=== PATIENT | female | born 1995 | race Two or more races ===

== ENCOUNTER 2019-03-06 15:25 | Emergency (ER) | payer MEDICAID, OTHER ==
[~2019-03-06] VITALS: Ht 162.6 cm; Wt 82.1 kg
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
--- NOTE | 2019-03-06 16:17 | NUR ---
LAB AT BEDSIDE FOR BLOOD DRAW
--- NOTE | 2019-03-06 16:20 | NUR ---
URINE SENT TO STAT LAB
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
[2019-03-06 16:37] LABS: APPEARANCE,URINE Slightly Cloudy (CLEAR); BILIRUBIN,URINE SMALL (NEGATIVE); BLOOD, URINE Trace-lysed Ery/uL (NEGATIVE); COLOR,URINE Dark (YELLOW); KETONES,URINE Trace (NEGATIVE); LEUKOCYTE ESTERASE ,URINE Trace (NEGATIVE); NITRITE, URINE Negative (NEGATIVE); PH,URINE 5.5 (5.0-8.0); PROTEIN,URINE 30 mg/dl (NEGATIVE); UGLUCOSE Negative (NEGATIVE); UROBILINOGEN,URINE 0.2 EU/dL (0.2)
[2019-03-06 16:42] LABS: BASOPHILS % (AUTO) 0.7 % (0.0-2.0); EOSINOPHILS % (AUTO) 0.7 % (0.0-6.0); HEMATOCRIT 32 % (33-45); HEMOGLOBIN 10.5 g/dL (11.5-14.8); LYMPHOCYTES # (AUTO) 2.4 /CMM (0.8-4.8); LYMPHOCYTES % (AUTO) 34.3 % (20.0-44.0); MEAN CORPUSCULAR HGB CONC 33 g/dl (31.0-36.0); MEAN CORPUSCULAR VOLUME 86 fL (82-100); MONOCYTES # (AUTO) 0.4 /CMM (0.1-1.30); MONOCYTES % (AUTO) 6.1 % (2.0-12.0); NEUTROPHILS # (AUTO) 4.1 /CMM (1.8-8.9); NEUTROPHILS % (AUTO) 58.2 % (43.0-81.0); PLATELET COUNT (AUTO) 265 /CMM (150-450); WHITE BLOOD COUNT (AUTO) 7.1 K/uL (4.3-11.0)
[2019-03-06 16:47] LABS: BACTERIA,URINE Many /HPF (None Seen); SQUAMOUS EPITHELIAL CELL,UR Many /HPF (None Seen)
[2019-03-06 16:51] LABS: CALCIUM, SERUM 8.3 mg/dL (8.5-10.1); CREATININE 0.8 mg/dL (0.6-1.3); POTASSIUM 4.2 mmol/L (3.5-5.1)
[2019-03-06 16:57] LABS: BILIRUBIN,TOTAL 0.2 mg/dL (0.2-1.0); TOTAL PROTEIN, SERUM 6.4 g/dL (6.4-8.2)
--- NOTE | 2019-03-06 17:16 | NUR ---
[employer] AT BEDSIDE
--- NOTE | 2019-03-06 17:32 | NUR ---
Patient discharged to home in stable condition. Written and verbal after care instructions given. Patient verbalizes understanding of instruction.
[2019-03-06 17:35] VITALS: BP 111/63
== END 2019-03-06 17:36 | disposition home or self-care (01) ==
LOC: ER 15:31
DX: T74.21XA Adult sexual abuse, confirmed, initial encounter (principal); N39.0 Urinary tract infection, site not specified; F15.90 Other stimulant use, unspecified, uncomplicated; F11.90 Opioid use, unspecified, uncomplicated; F43.10 Post-traumatic stress disorder, unspecified; F41.9 Anxiety disorder, unspecified; F32.9 Major depressive disorder, single episode, unspecified; F90.9 Attention-deficit hyperactivity disorder, unspecified type; F10.10 Alcohol abuse, uncomplicated; F17.200 Nicotine dependence, unspecified, uncomplicated; Y90.9 Presence of alcohol in blood, level not specified; Z98.890 Other specified postprocedural states; Z88.0 Allergy status to penicillin; Z59.0 Homelessness; Z90.49 Acquired absence of other specified parts of digestive tract
CPT/HCPCS: 36415; 80053-TC; 81000-TC; 84703-TC; 85025-TC; 87086-TC; 87491; 87591

== ENCOUNTER 2019-11-21 11:52 | Inpatient (IN) | payer MEDICAID, OTHER ==
[~2019-11-21] VITALS: Ht 160 cm; Wt 81.6 kg
--- NOTE | 2019-11-21 12:16 | NUR ---
ASHWINI CUSTOMER SUPPORT ENGINEER AT BEDSIDE FOR EVAL.
--- NOTE | 2019-11-21 12:20 | NUR ---
SOAP TENDER AT BEDSIDE FOR BLOOD DRAW.
[2019-11-21 12:31] LABS: BASOPHILS % (AUTO) 0.3 % (0.0-2.0); HEMATOCRIT 29 % (33-45); HEMOGLOBIN 9.5 g/dL (11.5-14.8); LYMPHOCYTES # (AUTO) 0.9 /CMM (0.8-4.8); LYMPHOCYTES % (AUTO) 18.9 % (20.0-44.0); MEAN CORPUSCULAR HGB CONC 33 g/dl (31.0-36.0); MEAN CORPUSCULAR VOLUME 84 fL (82-100); MONOCYTES # (AUTO) 0.3 /CMM (0.1-1.30); MONOCYTES % (AUTO) 5.3 % (2.0-12.0); NEUTROPHILS # (AUTO) 3.7 /CMM (1.8-8.9); NEUTROPHILS % (AUTO) 73.5 % (43.0-81.0); PLATELET COUNT (AUTO) 209 /CMM (150-450); RED BLOOD CELL COUNT(AUTO) 3.43 MIL/uL (4.0-5.2)
--- NOTE | 2019-11-21 12:36 | NUR ---
U/S TECH AT BEDSIDE FOR CANDIS HAND
[2019-11-21 13:00] LABS: CALCIUM, SERUM 8.6 mg/dL (8.5-10.1); CARBON DIOXIDE 26 mmol/L (21-32); CHLORIDE 103 mmol/L (98-107); CREATININE 0.6 mg/dL (0.6-1.3); GLUCOSE 87 mg/dL (74-106); POTASSIUM 3.3 mmol/L (3.5-5.1); SODIUM SERUM 138 mmol/L (136-145); UREA NITROGEN, BLOOD 10 mg/dL (7-18)
[2019-11-21 13:14] LABS: ALANINE AMINOTRANSFERASE < 6 U/L (12-78); ALBUMIN 2.3 g/dL (3.4-5.0); ALKALINE PHOSPHATASE 62 U/L (46-116); ASPARTATE AMINOTRANSFERASE 14 U/L (15-37); B-TYPE NATRIURETIC PEPTIDE 207 PG/ML (0-125); BILIRUBIN,DIRECT 0.1 mg/dL (0.0-0.2); BILIRUBIN,TOTAL 0.2 mg/dL (0.2-1.0); TOTAL PROTEIN, SERUM 6.8 g/dL (6.4-8.2)
[2019-11-21] MEDS ORDERED: VANCOMYCIN 1 GM in IV D5W 250 ML IV ONE (14:30)
--- NOTE | 2019-11-21 14:33 | NUR ---
[facility].
--- NOTE | 2019-11-21 15:23 | NUR ---
NURSING SUP GAVE M/S BED 202-1.
[2019-11-21] MEDS ORDERED: ONDANSETRON HCL/PF 4 MG/2 ML VIAL IVP PRN (15:30)
--- NOTE | 2019-11-21 15:32 | NUR ---
REPORT GIVEN TO FERNANDO GABRIEL. AWAITING TRANSFER TO FLOOR.
--- NOTE | 2019-11-21 15:56 | NUR ---
MS/RN NOTE Received report from [place], awaiting for transfer to floor.
--- NOTE | 2019-11-21 16:31 | NUR ---
MS/RN ADMITTING NOTE Patient received from ER on wheelchair, A/O x4, showing no signs of acute distress or SOB. BP: 121/70, HR 86, O2 100% on RA, T 97.6F, patient is complaining of pain 5/10 in the epigastric area and states she has been making several bowel movements today; states bowel movements are soft and brown. IV line in the KIMBERLY noted, however ER nurse [place] said the IV is no longer patent. IV line in the right shoulder #22g noted clean and patent. Patient presents with BLE edema, the right lower leg and foot significantly larger, with what seems to be a small abscess in the right knee. Generalized bruising in the BLE, BUE and lower abdominal area. Photos taken and placed in chart. Patient stated she is allergic to penicillin and gets rashes -- pharmacy aware. Patient stated she is 4 months and is planning to abort on friday at [facility]. Patient stated she used heroin this morning intravenously. MD is aware that patient has arrived on the floor, new admitting orders received. Will continue with plan of care.
[2019-11-21] MEDS ORDERED: FEE PK DOSING 1 MIN EA MC ONE (16:50)
[2019-11-21] MEDS: IV NS 0.9% 1,000 ML IV PRN (16:57)
[2019-11-21] MEDS: CALCIUM CARBONATE 500 MG TAB.CHEW PO PRN (17:59)
[2019-11-21] MEDS ORDERED: PIPERACILLIN /TAZOBACTAM 3.375 G in IV D5W 50 ML IV SCH (18:00)
[2019-11-21] MEDS: MEROPENEM 500 MG in IV NS 0.9% 50 ML IV SCH (18:03)
--- NOTE | 2019-11-21 18:03 | NUR ---
MS/RN NOTE Merrem brought late by pharmacy, will administer now.
[2019-11-21 18:41] VITALS: BP 121/70
[2019-11-21 18:51] VITALS: BP 121/70
--- NOTE | 2019-11-21 19:26 | NUR ---
MS/RN CLOSING NOTE Patient is resting in bed, A/O x4, showing no signs of acute distress or SOB, saturating 100% on RA. IV line in the right shoulder #22g is clean and intact running NS @75ml/hr. Patient has no complaints of pain during my shift. All patient needs met, all due meds given. Bed is in lowest position, side rails x2 in upright position, call light is within reach and patient is aware of how to call for assistance when needed. Will endorse to student finance specialist.
--- NOTE | 2019-11-21 19:37 | NUR ---
RN OPEN NOTES RECEIVED PATIENT RESTING IN BED, EASILY AROUSABLE. A/OX4. NO SIGNS OF DISTRESS OR DISCOMFORT. BREATHING EVEN AND UNLABORED. IV ACCESS IN R SHOULDER WITH NS INFUSING, PATENT AND INTACT, NO SIGNS OF REDNESS OR INFILTRATION. BED IN LOW LOCKED POSITION WITH SIDE RAILS X2. CALL LIGHT WITHIN REACH. WILL CONTINUE TO MONITOR.
[2019-11-21 20:05] VITALS: BP 117/59
[2019-11-21] MEDS: VANCOMYCIN 1.25 GM in IV D5W 250 ML IV SCH (21:00)
[2019-11-22] MEDS: MEROPENEM 500 MG in IV NS 0.9% 50 ML IV SCH ×3 (01:29→18:15)
[2019-11-22 04:41] LABS: APPEARANCE,URINE SLIGHTLY CLOUDY (CLEAR); COLOR,URINE YELLOW (YELLOW)
[2019-11-22 04:42] LABS: BILIRUBIN,URINE NEGATIVE (NEGATIVE); BLOOD, URINE NEGATIVE Ery/uL (NEGATIVE); KETONES,URINE NEGATIVE (NEGATIVE); PROTEIN,URINE NEGATIVE (NEGATIVE); UGLUCOSE TRACE mg/dL (NEGATIVE); UROBILINOGEN,URINE 0.2 EU/dL (0.2)
[2019-11-22 04:43] LABS: BACTERIA,URINE Moderate /HPF (None Seen); LEUKOCYTE ESTERASE ,URINE 1+ (NEGATIVE); NITRITE, URINE POSITIVE (NEGATIVE); SQUAMOUS EPITHELIAL CELL,UR Few /HPF (None Seen); WBC,URINE 21-50 /HPF (0-3)
[2019-11-22] MEDS: VANCOMYCIN 1.25 GM in IV D5W 250 ML IV SCH ×3 (06:21→21:00)
[2019-11-22 06:39] LABS: BASOPHILS % (AUTO) 0.1 % (0.0-2.0); EOSINOPHILS % (AUTO) 0.7 % (0.0-6.0); HEMATOCRIT 27 % (33-45); HEMOGLOBIN 8.9 g/dL (11.5-14.8); LYMPHOCYTES # (AUTO) 0.9 /CMM (0.8-4.8); LYMPHOCYTES % (AUTO) 16.7 % (20.0-44.0); MEAN CORPUSCULAR HGB CONC 33 g/dl (31.0-36.0); MEAN CORPUSCULAR VOLUME 83 fL (82-100); MONOCYTES # (AUTO) 0.3 /CMM (0.1-1.30); MONOCYTES % (AUTO) 5.1 % (2.0-12.0); NEUTROPHILS # (AUTO) 4.4 /CMM (1.8-8.9); NEUTROPHILS % (AUTO) 77.4 % (43.0-81.0); PLATELET COUNT (AUTO) 205 /CMM (150-450); WHITE BLOOD COUNT (AUTO) 5.7 K/uL (4.3-11.0)
--- NOTE | 2019-11-22 06:59 | NUR ---
CARPET FLOOR LAYER APPRENTICE NOTES PATIENT RESTING IN BED, EASILY AROUSABLE. A/OX4. NO SIGNS OF DISTRESS OR DISCOMFORT. BREATHING EVEN AND UNLABORED. IV ACCESS IN R SHOULDER WITH VANCO INFUSING, PATENT AND INTACT, NO SIGNS OF REDNESS OR INFILTRATION. ALL NEEDS MET. NO SIGNIFICANT CHANGES THROUGH THE NIGHT. BED IN LOW LOCKED POSITION WITH SIDE RAILS X2. CALL LIGHT WITHIN REACH. WILL ENDORSE TO AM SHIFT FOR TONIA. Addendum: 11/22/19 at 0701 by MARQUES MCCLELLAN RN ERROR- CLOSING NOTES NOT DISCHARGE NOTES.
[2019-11-22 07:13] LABS: CREATININE 0.6 mg/dL (0.6-1.3); MAGNESIUM 1.7 mg/dL (1.8-2.4); PHOSPHORUS 3.1 mg/dL (2.5-4.9); POTASSIUM 3.5 mmol/L (3.5-5.1)
[2019-11-22 07:42] LABS: THYROID STIMULATING HORMONE 1.244 uIU/mL (0.358-3.74)
--- NOTE | 2019-11-22 08:00 | NUR ---
MS RN OPENING NOTES Received Patient awake and resting in bed. A/O x 4. VS stable with no acute distress. Breathing even and unlabored on room air with no respiratory distress. Denies pain. No signs and symptoms of pain. 22g PIV on Right Shoulder clean, intact, patent and flushing well with NS infusing at 75ml/hr. Safety precautions in place. Bed locked and set to lowest position with side rails x 2 up. All needs rendered at this time. Call light within reach. Will continue to monitor.
[2019-11-22] MEDS: PANTOPRAZOLE 40 MG TABLET.DR PO SCH (09:01)
[2019-11-22 09:10] VITALS: BP 114/50
--- NOTE | 2019-11-22 09:27 | NUR ---
WOUND CARE CONSULT: PT PRESENTS WITH RED AREAS TO HER LEGS, PRESENT ON ADMISSION. PT BEING TREATED FOR CELLULITIS. WILL SEE PRN. PT IS INDEPENDENT WITH BED MOBILITY AND CONTINENT.
[2019-11-22] MEDS: Magnesium 1GM/D5W 100ML PREMIX 100 ML IV SCH ×2 (11:59→12:56)
--- NOTE | 2019-11-22 12:00 | NUR ---
Social service consult requested by MD for homelessness, and drug use. Per MD notes, pt is a 24-year-old female with past medical history of cholecystectomy, torticollis, anxiety, depression, ADHD, IV drug abuse with heroin and methamphetamine), who is currently a 5 para 1 with 3 abortions, who presented to the ER yesterday for evaluation of worsening bilateral lower extremity swelling. She has plan to go to the clinic tomorrow to get an . QUALITY CONTROL AUDITOR met with the pt bedside. QUALITY CONTROL AUDITOR introduced self, explained the role of SW and purpose of the visit. Pt is alert and oriented x 4. Pt is cooperative and pleasant with QUALITY CONTROL AUDITOR during the assessment. Pt reports to be homeless for the past 2 month and has being staying in motels. Prior to 2 months pt was residing with a friend in [place] for 7 months. Pt reports to be currently 4 months but is scheduled to have an today at [facility]. However, since pt is hospitalized, she will need to reschedule her appt. with [facility]. Pt reports this is her 5th . When asked about using control, pt stated, she did have an IUD placed last year but it came off. Pt reports she was last year around this time of the year. 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 Pt is an IV drug use and uses methamphetamines and heroin. Pt last used methamphetamines yesterday morning prior to arrival at [facility]. Pt denies marijuana and alcohol use. pt reports, she smokes a 1/2 to 1 pack of cigarettes daily. Pt last attended [facility] rehab from February 2018-August 2018. Pt was seeing a psychiatrist at [facility] but is not seeing one currently. Pt has a psychiatric diagnosis of PTSD, ADHD, Depression and Anxiety. Pt has taken Wellbutrin in the past but is currently not taking any psychotropic medications. Pt stated, her mother in 2017 due to alcoholism. Pt denies SI/HI and visual/auditory hallucinations. Pt has a sister Solange, she is in close contact with and is her emergency contact . Pt's sister and dad live in [place]. QUALITY CONTROL AUDITOR provided active listening and supportive counseling. QUALITY CONTROL AUDITOR offered pt. homeless resources/packet, however pt declined, stating she will most likely go to the motel. QUALITY CONTROL AUDITOR offered pt referrals to treatment programs and mental health services, however pt declined stating she knows a [facility] and [facility] and refer to them if needed. No other social service needs are requested at this time. QUALITY CONTROL AUDITOR is available, if needed.
--- NOTE | 2019-11-22 14:39 | NUR ---
MS RN NOTES 22g PIV on Right Shoulder infiltrated. Inserted 22g PIV on LFA clean, intact, patent and flushing well with NS infusing at 75ml/hr. Patient tolerated well. Will continue to monitor.
[2019-11-22] MEDS: ACETAMINOPHEN 325 MG TABLET PO PRN ×2 (15:01→22:29)
--- NOTE | 2019-11-22 16:43 | NUR ---
MS RN NOTES Patient stated mild pain on LLE. Notified Sarah BELTRAN. Per STONE CLEANER, may order Tylenol 650mg PO q6h PRN for mild pain. Order noted and carried out. Patient in stable condition. Will continue to monitor.
[2019-11-22 16:56] VITALS: BP 96/48
[2019-11-22] MEDS: CALCIUM CARBONATE 500 MG TAB.CHEW PO PRN (18:15)
--- NOTE | 2019-11-22 19:30 | NUR ---
MS RN CLOSING NOTES Patient awake and resting in bed. A/O x 4. VS stable with no acute distress. Breathing even and unlabored on room air with no respiratory distress. Denies pain. No signs and symptoms of pain. 22g PIV on LFA infiltrated. Will endorse to oncoming shift. Safety precautions in place. Bed locked and set to lowest position with side rails x 2 up. All needs rendered at this time. Call light within reach. Will endorse plan of care to oncoming shift.
[2019-11-22 20:00] VITALS: BP 108/57
--- NOTE | 2019-11-22 20:00 | NUR ---
MS RN OPENING NOTES PATIENT RECEIVED RESTING IN BED A/O X 4. STABLE ON RA WITH BREATHING EVEN AND UNLABORED, NO SOB NOTED. NO SIGNS OF ACUTE DISTRESS. NO COMPLAINTS OF PAIN OR DISCOMFORT. NO IV ACCESS AT THE MOMENT. SAFETY PRECAUTIONS IN PLACE WITH BED IN LOWEST POSITION, CALL LIGHT WITHIN REACH, SIDE RAILS UP X2. WILL CONTINUE TO MONITOR.
--- NOTE | 2019-11-22 20:04 | NUR ---
MS RN NOTES ER NURSE AMELIA ATTEMPTED IV ACCESS, UNABLE TO GET. NOT PATENT AND NOT FLUSHABLE. WILL CONTINUE TO MONITOR.
[2019-11-22 20:06] VITALS: BP 108/57
--- NOTE | 2019-11-22 21:21 | NUR ---
MS RN NOTES DID NOT ADMINISTER IV VANCOMYCIN BECAUSE OF VANCO TROUGH OF 24. WILL CONTINUE TO MONITOR.
--- NOTE | 2019-11-22 22:21 | NUR ---
MS RN NOTES MIDLINE PLACED ON PATIENT LEFT UPPER ARM #18 PATENT AND INTACT. WILL CONTINUE TO MONITOR
--- NOTE | 2019-11-22 22:31 | NUR ---
MS RN NOTES PRN TYLENOL ADMINISTERED TO PATIENT FOR MILD LEG PAIN AND HEADACHE. WILL CONTINUE TO MONITOR.
[2019-11-23] MEDS: MEROPENEM 500 MG in IV NS 0.9% 50 ML IV SCH ×2 (00:29→08:25)
[2019-11-23] MEDS: VANCOMYCIN 1.25 GM in IV D5W 250 ML IV SCH (05:00)
--- NOTE | 2019-11-23 05:04 | NUR ---
MS RN NOTES DID NOT ADMINISTER 0500 IV VANCOMYCIN BECAUSE OF VANCO TROUGH OF 24. WILL CONTINUE TO MONITOR.
[2019-11-23] MEDS: IV NS 0.9% 1,000 ML IV PRN (05:14)
[2019-11-23 06:50] LABS: BASOPHILS % (AUTO) 0.2 % (0.0-2.0); EOSINOPHILS % (AUTO) 1.4 % (0.0-6.0); HEMATOCRIT 25 % (33-45); HEMOGLOBIN 8.2 g/dL (11.5-14.8); LYMPHOCYTES # (AUTO) 1.6 /CMM (0.8-4.8); LYMPHOCYTES % (AUTO) 30.2 % (20.0-44.0); MEAN CORPUSCULAR HGB CONC 33 g/dl (31.0-36.0); MEAN CORPUSCULAR VOLUME 83 fL (82-100); MONOCYTES # (AUTO) 0.3 /CMM (0.1-1.30); MONOCYTES % (AUTO) 6.4 % (2.0-12.0); NEUTROPHILS # (AUTO) 3.2 /CMM (1.8-8.9); NEUTROPHILS % (AUTO) 61.8 % (43.0-81.0); PLATELET COUNT (AUTO) 210 /CMM (150-450); RED BLOOD CELL COUNT(AUTO) 2.98 MIL/uL (4.0-5.2); WHITE BLOOD COUNT (AUTO) 5.2 K/uL (4.3-11.0)
--- NOTE | 2019-11-23 06:53 | NUR ---
MS CLOSING NOTES PATIENT CURRENTLY RESTING IN BED A/O X 4. STABLE ON RA WITH BREATHING EVEN AND UNLABORED, NO SOB NOTED. NO SIGNS OF ACUTE DISTRESS. NO COMPLAINTS OF PAIN OR DISCOMFORT. MIDLINE LOCATED ON MIREYA #18 RUNNING NS @ 75 ML/HR. SAFETY PRECAUTIONS IN PLACE WITH BED IN LOWEST POSITION, CALL LIGHT WITHIN REACH, SIDE RAILS UP X2. WILL CONTINUE TO MONITOR. ALL NEEDS WERE ATTENDED TO, PATIENT WAS KEPT CLEAN AND DRY. WILL ENDORSE TO ONCOMING SHIFT ABOUT TONIA.
[2019-11-23 07:06] LABS: CALCIUM, SERUM 7.7 mg/dL (8.5-10.1); CREATININE 0.6 mg/dL (0.6-1.3); MAGNESIUM 2.2 mg/dL (1.8-2.4); PHOSPHORUS 3.4 mg/dL (2.5-4.9); POTASSIUM 3.8 mmol/L (3.5-5.1)
[2019-11-23] MEDS: PANTOPRAZOLE 40 MG TABLET.DR PO SCH (07:11)
--- NOTE | 2019-11-23 07:20 | NUR ---
MS/RN - Assessment Patient is awake, A/O x 4, no c/o n/v, denies pain, no apparent distress, afebrile. IVF NS at 75 ml/hr infusing well on the left upper arm midline with no signs of infiltration. Labs reviewed with no critical results. Patient independent with bed mobility, ambulatory with steady gait. Possible discharge today. Patient educated on plan of care. Will continue with current medical management.
[2019-11-23 08:00] VITALS: BP 114/62
[2019-11-23] MEDS ORDERED: VANCOMYCIN 1 GM in IV D5W 250 ML IV SCH (11:00)
--- NOTE | 2019-11-23 14:27 | NUR ---
MS/RN - AMA Patient left against medical advice, stated "I need to leave the hospital now because the motel that I'm staying at will be removing my things." Explained to pt the risks and consequences of leaving AMA. Patient verbalized understanding and is continuing with the decision to leave AMA. Advised patient to follow up with her primary medical doctor as soon as possible and to return to the nearest ER for any chest pain, vomiting, generalized weakness, syncope, active bleeding or any emergent condition. Patient signed discharge/AMA/homeless waiver form and copies were provided. Patient refused photo to be taken. Patient is alert and oriented x 4, ambulatory, afebrile, vitals stable, denies pain, no apparent distress, denies SI/HI. All belongings with patient and she deny any missing items. Midline on the left upper arm was removed with catheter tip intact, no redness, no swelling noted at the site. Accompanied to the lobby and transported by private car.
== END 2019-11-23 14:30 | disposition left against medical advice (07) | DRG 566 ==
LOC: ER 11:58 → MEDSG2 15:46
PROVIDERS: ADMIT Registered Nurse
PROC: 05H633Z Insertion of Infusion Device into Left Subclavian Vein, Percutaneous Approach (ICD-10-PCS; principal; 2019-11-22)
DX: O98.812 Other maternal infectious and parasitic diseases complicating pregnancy, second trimester (principal); J18.9 Pneumonia, unspecified organism; L03.115 Cellulitis of right lower limb; E44.1 Mild protein-calorie malnutrition; E83.42 Hypomagnesemia; E66.01 Morbid (severe) obesity due to excess calories; O26.892 Other specified pregnancy related conditions, second trimester; L03.116 Cellulitis of left lower limb; Z59.0 Homelessness; F19.10 Other psychoactive substance abuse, uncomplicated; F43.10 Post-traumatic stress disorder, unspecified; Z90.49 Acquired absence of other specified parts of digestive tract; E87.6 Hypokalemia; F17.210 Nicotine dependence, cigarettes, uncomplicated; Z3A.16 16 weeks gestation of pregnancy; F32.9 Major depressive disorder, single episode, unspecified; F41.9 Anxiety disorder, unspecified; F11.10 Opioid abuse, uncomplicated; F15.10 Other stimulant abuse, uncomplicated; F90.9 Attention-deficit hyperactivity disorder, unspecified type; Z88.0 Allergy status to penicillin; O99.012 Anemia complicating pregnancy, second trimester; O99.282 Endocrine, nutritional and metabolic diseases complicating pregnancy, second trimester; O99.512 Diseases of the respiratory system complicating pregnancy, second trimester; O25.12 Malnutrition in pregnancy, second trimester; O99.322 Drug use complicating pregnancy, second trimester; Z68.31 Body mass index [BMI] 31.0-31.9, adult
CPT/HCPCS: 36410; 36415; 71045-TC; 80048-TC; 80061-TC; 80076-TC; 80202-TC; 81000-TC; 83735-TC; 83880; 84100-TC; 84443-TC; 84484-TC; 84703-TC; 85025-TC; 85730-TC; 87040-TC; 87081-TC; 87086-TC; 93307-TC; 93970-TC; A4216; G0378; J2185; J2543; J3370; J3475; J7030; J7060